=== PATIENT | female | born 1970 | race African-American/Black ===

== ENCOUNTER 2020-09-26 22:26 | Emergency (ER) | payer SELFPAY ==
[~2020-09-26] VITALS: Ht 160 cm; Wt 103.9 kg
[2020-09-27] MEDS ORDERED: ACETAMINOPHEN/CODEINE#3 (300/30mg) TAB PO ONE (00:15)
[2020-09-27] MEDS ORDERED: ONDANSETRON ODT 4 MG TAB PO ONE (00:15)
[2020-09-27 02:16] VITALS: BP 138/82
== END 2020-09-27 02:20 | disposition home or self-care (01) ==
LOC: ER 22:26
DX: S46.912A Strain of unspecified muscle, fascia and tendon at shoulder and upper arm level, left arm, initial encounter (principal); M75.82 Other shoulder lesions, left shoulder; M19.012 Primary osteoarthritis, left shoulder; X50.1XXA Overexertion from prolonged static or awkward postures, initial encounter; Y93.89 Activity, other specified; Y92.89 Other specified places as the place of occurrence of the external cause; Y99.8 Other external cause status
CPT/HCPCS: 73030; 93005; 99283; Q0162

== ENCOUNTER 2021-05-20 11:25 | Emergency (ER) | payer SELFPAY ==
[~2021-05-20] VITALS: Ht 160 cm; Wt 104.3 kg
[2021-05-20 11:59] LABS: Basophils # (auto) 0.1 10 ^3/uL (0-0.2); Eosinophils # (auto) 0.1 10 ^3/uL (0-0.8); Lymphocytes # (auto) 1.4 10 ^3/uL (0.4-5.4); Mean Corpuscular Hemoglobin 23.4 pg (28.0-32.0); Mean Corpuscular Volume 73.2 fL (80.0-100.0)
[2021-05-20 12:00] LABS: Basophils % (auto) 1.4 % (0.0-2.0); Eosinophils % (auto) 0.9 % (0.0-7.0); Hematocrit 33.3 % (36.0-46.0); Hemoglobin 10.7 g/dL (12.2-16.2); Lymphocytes % (auto) 16.7 % (10.0-50.0); Monocytes # (auto) 0.5 10 ^3/uL (0-1.3); Monocytes % (auto) 6.3 % (0.0-12.0); Neutrophils # (auto) 6.2 10 ^3/uL (1.6-8.6); Neutrophils % (auto) 74.7 % (37.0-80.0); Red Blood Cells 4.55 10^6/uL (4.0-5.20); Red Cell Distribution Width 17.4 % (11.8-14.3); White Blood Cell 8.3 10^3/uL (4.4-10.8)
[2021-05-20 12:07] LABS: Urine Bacteria NONE SEEN /hpf (None Seen); Urine Blood 2+ /uL (Negative); Urine Mucus FEW (None Seen); Urine Specific Gravity 1.012 (1.001-1.035); Urine WBC 3 /hpf (0 - 5)
[2021-05-20 12:13] LABS: INR 1.03 (0.9-1.15); Partial Thromboplastin Time 29.4 sec (23.6-33.0)
[2021-05-20 12:48] LABS: Albumin 3.1 g/dL (3.4-5.0); Calcium 8.6 mg/dL (8.5-10.1); Potassium 4.1 mmol/L (3.5-5.1)
[2021-05-20 12:53] LABS: BUN/Creatinine Ratio 14.3; Bilirubin, Total 0.4 mg/dL (0.2-1.0); Total Protein 7.8 g/dL (6.4-8.2)
[2021-05-20 14:02] VITALS: BP 146/81
== END 2021-05-20 14:04 | disposition home or self-care (01) ==
LOC: ER 11:25
DX: N93.9 Abnormal uterine and vaginal bleeding, unspecified (principal); N39.0 Urinary tract infection, site not specified; Z98.51 Tubal ligation status; Z90.49 Acquired absence of other specified parts of digestive tract; Z88.2 Allergy status to sulfonamides
CPT/HCPCS: 36415; 76856; 80053; 81001; 85025; 85610; 85730

== ENCOUNTER 2021-10-11 12:02 | Emergency (ER) | payer SELFPAY ==
[~2021-10-11] VITALS: Ht 160 cm; Wt 104.7 kg
[2021-10-11 14:12] LABS: Urine Bacteria NONE SEEN /hpf (None Seen); Urine Blood TRACE /uL (Negative); Urine Specific Gravity 1.015 (1.001-1.035); Urine WBC 270 /hpf (0 - 5); Urine WBC Clumps PRESENT /hpf (None Seen)
[2021-10-11 15:07] LABS: Basophils # (auto) 0.1 10 ^3/uL (0-0.2); Basophils % (auto) 0.9 % (0.0-2.0); Hemoglobin 8.9 g/dL (12.2-16.2); Lymphocytes # (auto) 1.5 10 ^3/uL (0.4-5.4); Mean Corpuscular Hemoglobin 21.2 pg (28.0-32.0); Monocytes # (auto) 0.5 10 ^3/uL (0-1.3); White Blood Cell 9.5 10^3/uL (4.4-10.8)
[2021-10-11 15:09] LABS: Eosinophils # (auto) 0.3 10 ^3/uL (0-0.8); Hematocrit 27.9 % (36.0-46.0); Lymphocytes % (auto) 15.8 % (10.0-50.0); Mean Corpuscular Volume 66.2 fL (80.0-100.0); Monocytes % (auto) 5.2 % (0.0-12.0); Neutrophils # (auto) 7.1 10 ^3/uL (1.6-8.6); Neutrophils % (auto) 75.1 % (37.0-80.0); Red Blood Cells 4.21 10^6/uL (4.0-5.20); Red Cell Distribution Width 17.3 % (11.8-14.3)
[2021-10-11 15:12] LABS: Albumin 2.8 g/dL (3.4-5.0); BUN/Creatinine Ratio 10.4; Calcium 8.4 mg/dL (8.5-10.1); Potassium 3.8 mmol/L (3.5-5.1)
[2021-10-11 15:15] LABS: Bilirubin, Total 0.2 mg/dL (0.2-1.0); Total Protein 7.7 g/dL (6.4-8.2)
[2021-10-11] MEDS ORDERED: IOHEXOL 300 MG/ML 100ML BOTTLE IJ ONE (16:22)
[2021-10-11] MEDS ORDERED: SODIUM CHLORIDE 0.9% 1,000 ML IV ONE (17:45)
[2021-10-11] MEDS ORDERED: GASTROGRAFIN 30 ML SOL ONE ×2 (18:47→19:32)
[2021-10-11] MEDS ORDERED: GASTROGRAFIN 120 ML SOL ONE (19:15)
[2021-10-11 21:27] VITALS: BP 144/77
[2021-10-11] MEDS ORDERED: CIPR-173 PO (22:19)
== END 2021-10-11 22:41 | disposition home or self-care (01) ==
LOC: ER 12:02
DX: N93.8 Other specified abnormal uterine and vaginal bleeding (principal); N39.0 Urinary tract infection, site not specified; Z90.89 Acquired absence of other organs; Z98.51 Tubal ligation status; Z88.2 Allergy status to sulfonamides
CPT/HCPCS: 36415; 74176; 74177; 80053; 81001; 85025; 87086; 96360; 99285; J7030; Q9963; Q9967; 93005